=== PATIENT | male | born 1975 | race Caucasian/White ===

== ENCOUNTER 2022-02-27 03:45 | Emergency (ER) | payer OTHER, SELFPAY ==
--- NOTE | 2022-02-27 03:46 | ED.GENADULT ---
HPI - General Adult General Chief complaint: Dizziness Stated complaint: dizziness Time Seen by Provider: 02/27/22 03:46 History of Present Illness HPI narrative: 46-year-old gentleman with history of bipolar disorder, alcohol use disorder in remission for at least the last month and recurrent episodes of tachycardia present an episode of symptomatic tachycardia it. States he has been feeling well, has not had any alcohol for well over a month, had a son and relaxing day did not feel like he was particularly stressed, took his usual amlodipine and 300 mg of quetiapine and laid down to rest and felt his heart pounding. Did not scribed pain, diaphoresis dyspnea. He does note that as soon as his heart seems like it is going a bit fast it makes him more anxious which exacerbates the problem. Has been evaluated previously for episodes of pounding heartbeat but it sounds like it has been limited to EKGs. Does not sound like he has had any type of extended cardiac monitoring, stress testing or echocardiogram. He was recently started on amlodipine to help with both blood pressure and heart rate and notes that it has made a difference. He similarly notes that prior episodes had occasionally been related to binge drinking the night before. He is very clear that he has not had any alcohol for well over a month and was feeling well prior to lying down. He has had no recent viral illnesses complains of no headaches. Related Data Home Medications Medication Instructions Recorded Confirmed amlodipine 10 mg tablet 10 mg DAILY 02/27/22 02/27/22 lamotrigine 25 mg tablet 25 mg BID 02/27/22 02/27/22 quetiapine 300 mg tablet 300 mg DAILY 02/27/22 02/27/22 Previous Rx's Medication Instructions Recorded metoprolol tartrate 25 mg tablet 25 mg PO DAILY #60 tabs 02/27/22 Allergies Allergy/AdvReac Type Severity Reaction Status Date / Time No Known Drug Allergies Allergy Verified 02/27/22 04:00 Review of Systems Review of Systems Narrative: Remainder of complete review of systems is otherwise unremarkable except for that included in the HPI. Patient History Medical History (Updated 02/27/22 @ 04:51 by Kary Rankin MD) Bipolar 1 disorder HTN (hypertension) Tachycardia Exam Initial Vital Signs Initial Vital Signs: General: Healthy appearing, in no acute distress. Able to give a complete and coherent history. Well-nourished well-developed HEENT: Moist mucous membranes, normal sclera with reactive pupils, Neck: No JVD, supple Respiratory: Lungs are clear to auscultation, no wheezing no rales no rhonchi. Full and symmetrical air movement Cardiac: Tachycardic but Regular with no murmurs no bruits Abdomen: Soft, nontender, good bowel tones, no flank pain Skin: Warm and dry, no rashes Neurologic: Grossly neurologically intact with no obvious asymmetries or abnormalities Extremities: No trauma, well perfused Psych: Cooperative, appropriate insight and affect Medical Decision Making MDM Narrative Medical decision making narrative: 46-year-old gentleman who presents with sinus tachycardia. Uncertain etiology. Previously he has had some episodes associated with binge drinking but he has not had any alcohol for at least a month. He has not been particularly stressed today no new medications. He was simply laying down to go to bed when his heart began pounding. In moving about the room his heart rate will vary between 20 and 30 beats per minute all normal sinus rhythm. No evidence of significant anemia or dehydration. Remainder of electrolytes are otherwise unremarkable. No signs of congestive heart failure or suggestion of cardiomyopathy. He has not had any recent viral illnesses. There is no ischemia or acute coronary syndrome appreciated, D-dimer is negative suggesting no DVT to complicate the overall picture. No signs of bacterial or viral infection. TSH is on the high end of normal. In the emergency department he is given a L of fluid and 25 mg of immediate release metoprolol. His heart rate does come down to the mid 90s. He is currently visiting from the [facility]. I am going to give him a prescription for immediate release metoprolol 25 mg b.i.d. and, have him continue with his amlodipine in the evening and suggest that he follow-up with his primary care doctor and possible admissions dean once he returns home. Additional workup for him could well include echocardiogram, Zio patch or Holter monitor testing and possible cardiac stress testing. Despite his continued labile heart rate I believe he is safe for home discharge. Will give him copies of EKGs and blood work to share with his primary care physician in follow-up. Discharge Plan Departure Patient Disposition: Home Clinical Impression: Paroxysmal sinus tachycardia Instructions: DI for Palpitations Activity Restrictions/Additional Instructions: Thank you for coming in this evening. It is frustrated heart is pounding for no apparent reason. Your workup tonight was actually quite reassuring. Your EKG showed no significant abnormalities, there is no evidence of heart attack or heart attack like syndrome, no evidence of congestive heart failure or enlarged heart on chest x-ray lab work or physical exam. You do not have significant anemia, electrolyte abnormalities and your kidney function is appropriate. There is no evidence of pulmonary embolism, abnormal will thyroid function, or infection In the emergency department you were given 1 L of fluid as well as 25 mg of immediate release metoprolol. Metoprolol is both a blood pressure and heart rate medication. At this time, there is no life-threatening explanation for your rapid heart rate. I am going to suggest that you take 25mg of short acting metoprolol in the morning and evening along with the amlodipine in the evening. You do need to buy a home blood pressure monitor and check blood pressures daily. If you note that your blood pressure is under 110/60 OR your heart rate is 60 or lower, do not take the evenign dsoe of metoprolol I do want you to follow-up with your primary care physician. It may be appropriate to also see a admissions dean. Further workup might include an echocardiogram, an ultrasound picture of your heart, cardiac stress testing as well as extended heart rate monitoring with a device such as a Zio patch If you find that you are getting worse or develop any new symptoms, please feel free to return to the emergency department for further evaluation. Prescriptions: New metoprolol tartrate 25 mg tablet 25 mg PO DAILY Qty: 60 1RF No Action quetiapine 300 mg tablet 300 mg DAILY Label Comments: TAKE ONE TABLET BY MOUTH ONE TIME DAILY lamotrigine 25 mg tablet 25 mg BID Label Comments: TAKE ONE TABLET BY MOUTH TWICE DAILY amlodipine 10 mg tablet 10 mg DAILY Label Comments: TAKE ONE TABLET BY MOUTH ONE TIME DAILY
[2022-02-27 03:51] VITALS: BP 134/86; PULSE 113; RESP 16; TEMP 36.8; O2SAT 99; BMI 27.4
[2022-02-27 03:55] VITALS: PULSE 101; RESP 12; O2SAT 98
--- NOTE | 2022-02-27 03:59 | DI.RAD.S_ITS ---
PROCEDURE: XR CHEST 1V INDICATIONS: tachycardia TECHNIQUE: One view of the chest was acquired. COMPARISON: [facility], , CHEST 1 VIEW, 07/20/2014, 15:06. FINDINGS: Surgical changes and devices: None. Lungs and pleura: Lungs are clear. No pleural effusions or pneumothorax. Unchanged calcified granuloma or benign hamartoma, extreme right lung base. Mediastinum: Mediastinal contours appear normal. Heart size is normal. Bones and chest wall: No suspicious bony lesions. Overlying soft tissues appear unremarkable. IMPRESSION: No evidence acute pulmonary process. Comment: Final report is concordant with preliminary interpretation provided by [facility]. Dictated by: Ronak Cesar M.D. on 02/27/2022 at 8:20 Approved by: Ronak Cesar M.D. on 02/27/2022 at 8:22
[2022-02-27 04:00] VITALS: PULSE 106; RESP 13; O2SAT 96
[2022-02-27 04:07] LABS: Add Manual Diff / Slide Review NO; Basophils Absolute Auto 0 /uL (0-100); Basophils Percent Auto 0.5 % (0-2); Eosinophils Absolute Auto 400 /uL (0-450); Eosinophils Percent Auto 6.7 % (2-4); Hematocrit 42.3 % (41-53); Hemoglobin 14.9 g/dL (13.5-17.5); Lymphocytes Absolute Auto 2400 /uL (1100-4500); Lymphocytes Percent Auto 40.3 % (25-40); Mean Corpuscular HGB Conc 35.1 % (30-36); Mean Corpuscular Hemoglobin 28.4 PG (26-34); Mean Corpuscular Volume 80.9 fL (80-100); Monocytes Absolute Auto 400 /uL (0-900); Monocytes Percent Auto 7.2 % (3-14); Neutrophils Absolute Auto 2700 /uL (1500-7000); Neutrophils Percent Auto 45.3 % (50-75); Platelet Count 255 X10^3/uL (150-400); Red Blood Cell Count 5.23 X10^6/uL (4.5-5.9); Red Cell Distribution Width 12.8 % (11.6-14.8)
[2022-02-27] MEDS: SODIUM CHLORIDE 0.9% 1,000 ML 1000 ML IV (04:09)
[2022-02-27 04:12] LABS: Magnesium 2.1 mg/dL (1.6-2.3)
[2022-02-27 04:13] LABS: Alanine Aminotransferase 29 IU/L (<50); Albumin 4.5 g/dL (3.5-5.0); Albumin Globulin Ratio 1.4 (1.0-2.8); Alkaline Phosphatase 69 U/L (38-126); Aspartate Aminotransferase 25 IU/L (17-59); Bilirubin Total 0.5 mg/dL (0.2-1.3); Blood Urea Nitrogen 16 mg/dL (9-20); Calcium 8.8 mg/dL (8.4-10.2); Carbon Dioxide 25 mmol/L (22-32); Chloride 104 mmol/L (98-107); Estimated Glomerular Filt Rate > 60 mL/min (>60); Globulin 3.3 g/dL (1.7-4.1); Glucose 181 mg/dL (70-100); HEMOLYSIS 24 (0-50); Potassium 3.6 mmol/L (3.4-5.1); Sodium 139 mmol/L (137-145); Total Protein 7.8 g/dL (6.3-8.2)
[2022-02-27 04:22] LABS: NT-proBNP (BNP-Adult 18+) 17 pg/mL (<125)
[2022-02-27 04:23] LABS: D Dimer < 500 ng/ml (<500)
[2022-02-27 04:25] LABS: Troponin I < 0.012 ng/mL (0.01-0.034)
[2022-02-27 04:30] VITALS: PULSE 104; RESP 16; O2SAT 95
[2022-02-27 04:30] LABS: COVID19 -Nasal RAPID Negative (Negative)
[2022-02-27 04:48] LABS: Thyroid Stimulating Hormone 4.47 uIU/mL (0.47-4.68)
[2022-02-27] MEDS: METOPROLOL IR 25 MG TABLET PO (04:48)
[2022-02-27 05:00] VITALS: PULSE 97; RESP 15; O2SAT 95
[2022-02-27 05:30] VITALS: BP 134/86; PULSE 85; RESP 16
--- NOTE | 2022-02-27 20:16 | PC.NURSE ---
Per primary nurse: fluids infused @ 0500.
== END 2022-02-27 05:30 | disposition home or self-care (01) ==
PROVIDERS: Emergency Provider Emergency Medicine
DX: I47.1 Supraventricular tachycardia (principal); Z20.822 Contact with and (suspected) exposure to COVID-19
CPT/HCPCS: 36415; 71045; 80053; 81003; 83735; 83880; 84443; 84484; 85025; 85379; 87635; 93005; 93010; 96360; 99284; C9803

== ENCOUNTER 2023-03-16 22:42 | Emergency (ER) | payer OTHER, SELFPAY ==
[2023-03-16 22:57] VITALS: BP 143/98; RESP 18; TEMP 37.2; O2SAT 98; BMI 27.6
--- NOTE | 2023-03-16 23:26 | ED_ITS ---
HPI - Skin/Abscess/Foreign Bdy General Chief complaint: Eye Problems Stated complaint: facial swelling, diagnosed cellulitis Time Seen by Provider: 03/16/23 23:21 Source: patient Mode of arrival: Ambulatory Limitations: no limitations History of Present Illness HPI narrative: Patient 47-year-old male presents today with 3-4 days of facial swelling redness body aches. Sports that he thought he had COVID a few days ago he is had negative COVID tests out then started noticing rash around face in his eye. Started getting more swollen today. Went to his PCP to day who started him on what sounds like cephalexin. He denies any eye pain blurry vision double vision but does have significant swelling periorbitally around the left. He does report some pruritus. He is afebrile here has been taking ibuprofen every 4 hours. He has no actual eye pain he complains of scalp itching he is pretty confident that he had a fever the 1st couple of days. No other symptoms. Denies rash or hives anywhere else. Related Data Home Medications Medication Instructions Recorded Confirmed amlodipine 10 mg tablet 10 mg DAILY 02/27/22 02/27/22 lamotrigine 25 mg tablet 25 mg BID 02/27/22 02/27/22 quetiapine 300 mg tablet 300 mg DAILY 02/27/22 02/27/22 Previous Rx's Medication Instructions Recorded metoprolol tartrate 25 mg tablet 25 mg PO DAILY #60 tabs 02/27/22 Allergies Allergy/AdvReac Type Severity Reaction Status Date / Time No Known Drug Allergies Allergy Verified 02/27/22 04:00 Review of Systems Review of Systems ROS Unobtainable: All systems reviewed & are unremarkable except as noted in HPI and below Patient History Medical History Bipolar 1 disorder HTN (hypertension) Tachycardia Social History Smoking Status: Current every day smoker Smoking Status: Current every day smoker tobacco type: vaping Substance Use Type: does not use Exam Initial Vital Signs Initial Vital Signs: Vital Signs Temperature 99 F 03/16/23 22:57 Respiratory Rate 18 03/16/23 22:57 Blood Pressure 143/98 H 03/16/23 22:57 Pulse Oximetry 98 03/16/23 22:57 Oxygen Delivery Method Room Air 03/16/23 22:57 GENERAL: Alert 47-year-old male appears uncomfortable with obvious rashes swelling HEENT: Head atraumatic,EOMI, pupils reactive, right-sided periorbital swelling with erythema face symmetric, no proptosis conjunctivae are white non erythematous moist mucous membranes CARDIOVASCULAR: Regular rate and rhythm without murmurs, rubs or gallops. RESPIRATORY: Breath sounds equal bilaterally, no wheezes rales or rhonchi. ABDOMEN: Soft, nontender. Normoactive bowel sounds all 4 quadrants. No guarding or rebound. EXTREMITIES: Normal range of motion, no clubbing or edema. Neurovascularly intact NEUROLOGICAL: Alert and oriented x4. SKIN: Right Orbital swelling erythema there is some splotchy erythematous areas on forehead and face. No vesicles bilateral face worse on right than left Course Orders Ordered: ED Orders 03/16/23 23:38 CBC Auto Diff [Complete Blood Count AUTO DIFF] Stat CMP [Comprehensive Metabolic Panel] Stat Lactate (Lactic Acid) Stat Procalcitonin Stat Discontinued Medications Dexamethasone (Dexamethasone 10 Mg/Ml Vial) 10 mg IV NOW ONE Stop: 03/16/23 23:28 Last Admin: 03/16/23 23:47 Dose: 10 mg Documented By: ILYA Ampicillin Sodium/Sulbactam (Sodium 3 gm/ Sodium Chloride) 100 mls @ 200 mls/hr IV NOW ONE Stop: 03/16/23 23:27 Last Infusion: 03/17/23 00:26 Dose: 0 mls/hr Documented By: Admin: 03/16/23 23:49 Dose: 200 mls/hr Documented By: ILYA Vital Signs Vital signs: Vital Signs - 8 hr 03/16/23 22:57 03/17/23 00:16 03/17/23 00:16 Temperature 99 F Pulse Rate 78 83 Respiratory Rate 18 16 Blood Pressure 143/98 H 127/88 Pulse Oximetry 98 99 Oxygen Delivery Method Room Air 03/17/23 00:30 03/17/23 00:30 03/17/23 01:00 Temperature Pulse Rate 82 Respiratory Rate Blood Pressure 120/82 120/84 Pulse Oximetry 97 Oxygen Delivery Method 03/17/23 01:00 03/17/23 01:30 03/17/23 01:31 Temperature Pulse Rate 79 80 Respiratory Rate Blood Pressure 136/87 Pulse Oximetry 95 97 Oxygen Delivery Method 03/17/23 01:31 Temperature Pulse Rate 79 Respiratory Rate 16 Blood Pressure Pulse Oximetry 97 Oxygen Delivery Method MDM - Skin/Abscess/Foreign Bdy Lab Data 03/16/23 23:38 03/16/23 23:38 Labs: Lab Results 03/16/23 03/16/23 03/16/23 Range/Units 23:38 23:38 23:38 WBC 5.8 (4.5-11.0) X10^3/uL RBC 4.54 (4.5-5.9) X10^6/uL Hgb 13.3 L (13.5-17.5) g/dL Hct 37.4 L (41-53) % MCV 82.3 (80-100) fL MCH 29.2 (26-34) PG MCHC 35.5 (30-36) % RDW 12.9 (11.6-14.8) % Plt Count 200 (150-400) X10^3/uL Neut % (Auto) 77.4 H (50-75) % Lymph % (Auto) 9.7 L (25-40) % [place] % (Auto) 10.4 (3-14) % Eos % (Auto) 1.4 L (2-4) % Baso % (Auto) 1.1 (0-2) % Neut # (Auto) 4500 (6013-2488) /uL Lymph # (Auto) 600 L (5358-7945) /uL [place] # (Auto) 600 (0-900) /uL Eos # (Auto) 100 (0-450) /uL Baso # (Auto) 100 (0-100) /uL Sodium 139 (137-145) mmol/L Potassium 3.9 (3.4-5.1) mmol/L Chloride 103 (98-107) mmol/L Carbon Dioxide 25 (22-32) mmol/L BUN 6 L (9-20) mg/dL Creatinine 0.87 (0.66-1.25) mg/dL Estimated GFR > 60 (>60) mL/min BUN/Creatinine Ratio 6.9 (6-22) Glucose 99 (70-100) mg/dL Lactate 0.8 (0.7-2.1) mmol/L Calcium 8.7 (8.4-10.2) mg/dL Total Bilirubin 1.3 (0.2-1.3) mg/dL AST 132 H (17-59) IU/L ALT 146 H (<50) IU/L Alkaline Phosphatase 141 H (38-126) U/L Total Protein 7.8 (6.3-8.2) g/dL Albumin 4.1 (3.5-5.0) g/dL Globulin 3.7 (1.7-4.1) g/dL Albumin/Globulin Ratio 1.1 (1.0-2.8) Procalcitonin (<0.5) ng/mL 03/16/23 Range/Units 23:38 WBC (4.5-11.0) X10^3/uL RBC (4.5-5.9) X10^6/uL Hgb (13.5-17.5) g/dL Hct (41-53) % MCV (80-100) fL MCH (26-34) PG MCHC (30-36) % RDW (11.6-14.8) % Plt Count (150-400) X10^3/uL Neut % (Auto) (50-75) % Lymph % (Auto) (25-40) % [place] % (Auto) (3-14) % Eos % (Auto) (2-4) % Baso % (Auto) (0-2) % Neut # (Auto) (1087-9189) /uL Lymph # (Auto) (7960-2472) /uL [place] # (Auto) (0-900) /uL Eos # (Auto) (0-450) /uL Baso # (Auto) (0-100) /uL Sodium (137-145) mmol/L Potassium (3.4-5.1) mmol/L Chloride (98-107) mmol/L Carbon Dioxide (22-32) mmol/L BUN (9-20) mg/dL Creatinine (0.66-1.25) mg/dL Estimated GFR (>60) mL/min BUN/Creatinine Ratio (6-22) Glucose (70-100) mg/dL Lactate (0.7-2.1) mmol/L Calcium (8.4-10.2) mg/dL Total Bilirubin (0.2-1.3) mg/dL AST (17-59) IU/L ALT (<50) IU/L Alkaline Phosphatase (38-126) U/L Total Protein (6.3-8.2) g/dL Albumin (3.5-5.0) g/dL Globulin (1.7-4.1) g/dL Albumin/Globulin Ratio (1.0-2.8) Procalcitonin 0.13 (<0.5) ng/mL MDM Narrative Medical decision making narrative: Patient 47-year-old male who presents today with significant erythema facial swelling more over right eye than left. Eye itself appears well he has no pain or concerning signs for orbital cellulitis. He does have possible periorbital cellulitis due to the amount of erythema and swelling. However it does extend into his forehead and onto the left side as well. He is afebrile here blood work is overall reassuring without leukocytosis elevated lactate and procalcitonin. Blood cultures are pending. He was given cephalexin by PCP he is given a dose of Unasyn here in the ED. erythema and swelling actually do seem to improve slightly. He is able to open his eye completely now. He is not been on cephalexin very long. Recommend continuing the cephalexin as prescribed and return if swelling redness get worse. This does seem to be more of a cellulitis rather an allergic reaction there are no other hives but he is complaining of some pruritus. He is given a dose of dexamethasone with seem to help some swelling. Liver enzymes are elevated prior history of alcohol abuse no elevated bilirubin and he has no abdominal pain. Discharge Plan Departure Patient Disposition: Home Clinical Impression: Cellulitis, face Instructions: DI for Cellulitis -- Adult Activity Restrictions/Additional Instructions: *You have been diagnosed with facial cellulitis *What to do: At this time I think give the antibiotics a chance to work, expect to have swelling worse in the morning. Ice 20-30 minutes at times upright. *Continue to take medications as directed Continue taking antibiotics as prescribed *Follow up with your primary care provider in 2-3 days or call [phone] *Return to ER if you should have increasing redness pain fever inability to open eye painful eye movements or any new, worsening or concerning symptoms Prescriptions: No Action quetiapine 300 mg tablet 300 mg DAILY Patient Comments: TAKE ONE TABLET BY MOUTH ONE TIME DAILY lamotrigine 25 mg tablet 25 mg BID Patient Comments: TAKE ONE TABLET BY MOUTH TWICE DAILY amlodipine 10 mg tablet 10 mg DAILY Patient Comments: TAKE ONE TABLET BY MOUTH ONE TIME DAILY metoprolol tartrate 25 mg tablet 25 mg PO DAILY Qty: 60 1RF Referrals: Adore Bazan MD [Primary Care Provider] - Stand Alone Forms: Patient Portal/API
[2023-03-16] MEDS: DEXAMETHASONE 10 MG/ML VIAL IV (23:47)
[2023-03-16] MEDS: AMPICILLIN/SULBACTAM 3 GM 3 GM in SODIUM CHLORIDE 0.9% 100 ML IV (23:49)
[2023-03-16 23:52] LABS: Add Manual Diff / Slide Review NO; Basophils Absolute Auto 100 /uL (0-100); Basophils Percent Auto 1.1 % (0-2); Eosinophils Absolute Auto 100 /uL (0-450); Eosinophils Percent Auto 1.4 % (2-4); Hematocrit 37.4 % (41-53); Hemoglobin 13.3 g/dL (13.5-17.5); Lymphocytes Absolute Auto 600 /uL (1100-4500); Lymphocytes Percent Auto 9.7 % (25-40); Mean Corpuscular HGB Conc 35.5 % (30-36); Mean Corpuscular Hemoglobin 29.2 PG (26-34); Mean Corpuscular Volume 82.3 fL (80-100); Monocytes Absolute Auto 600 /uL (0-900); Monocytes Percent Auto 10.4 % (3-14); Neutrophils Absolute Auto 4500 /uL (1500-7000); Neutrophils Percent Auto 77.4 % (50-75); Platelet Count 200 X10^3/uL (150-400); Red Blood Cell Count 4.54 X10^6/uL (4.5-5.9); Red Cell Distribution Width 12.9 % (11.6-14.8); White Blood Cell Count 5.8 X10^3/uL (4.5-11.0)
[2023-03-16 23:56] LABS: Lactate (Lactic Acid) 0.8 mmol/L (0.7-2.1)
[2023-03-16 23:58] LABS: Alanine Aminotransferase 146 IU/L (<50); Albumin 4.1 g/dL (3.5-5.0); Albumin Globulin Ratio 1.1 (1.0-2.8); Alkaline Phosphatase 141 U/L (38-126); Aspartate Aminotransferase 132 IU/L (17-59); BUN Creatinine Ratio 6.9 (6-22); Bilirubin Total 1.3 mg/dL (0.2-1.3); Blood Urea Nitrogen 6 mg/dL (9-20); Calcium 8.7 mg/dL (8.4-10.2); Carbon Dioxide 25 mmol/L (22-32); Chloride 103 mmol/L (98-107); Estimated Glomerular Filt Rate > 60 mL/min (>60); Globulin 3.7 g/dL (1.7-4.1); Glucose 99 mg/dL (70-100); HEMOLYSIS < 15 (0-50); Potassium 3.9 mmol/L (3.4-5.1); Sodium 139 mmol/L (137-145); Total Protein 7.8 g/dL (6.3-8.2)
[2023-03-17 00:14] LABS: Procalcitonin 0.13 ng/mL (<0.5)
[2023-03-17 00:16] VITALS: BP 127/88; PULSE 78; PULSE 83; RESP 16; O2SAT 99
[2023-03-17 00:30] VITALS: BP 120/82; PULSE 82; O2SAT 97
[2023-03-17 01:00] VITALS: BP 120/84; PULSE 79; O2SAT 95
[2023-03-17 01:30] VITALS: PULSE 80; O2SAT 97
[2023-03-17 01:31] VITALS: BP 136/87; PULSE 79; RESP 16; O2SAT 97
== END 2023-03-17 01:43 | disposition home or self-care (01) ==
PROVIDERS: Emergency Provider Emergency Medicine; PCP Internal Medicine
DX: L03.211 Cellulitis of face (principal)
CPT/HCPCS: 36415; 80053; 83605; 84145; 85025; 87040; 96365; 96375; 99284; J0295; J1100

== ENCOUNTER 2024-04-23 18:30 | Emergency (ER) | payer OTHER, MEDICAID, SELFPAY ==
[2024-04-23] VITALS (12 sets, daily range): BP systolic 110–151; BP diastolic 57–96; PULSE 85–129; RESP 10–19; TEMP 36.6; O2SAT 93–99; BMI 30.2
--- NOTE | 2024-04-23 18:52 | EKG_ITS ---
[facility] [address] [address] Test Date: 2024-04-23 Pat Name: Ryan Kim Department: [facility] Room: Gender: Male Parking Enforcement Officer: ABIOLA : 1975 Requested By: Order Number: [id number] Reading MD: Nathaniel Crowley MD Measurements Intervals Kinsey Rate: 117 P: 60 NM: 168 QRS: 35 QRSD: 80 T: 58 QT: 308 QTc: 429 Interpretive Statements Sinus tachycardia Electronically Signed On 04-24-2024 7:59:25 PDT by Nathaniel Crowley MD
[2024-04-23 19:07] LABS: Add Manual Diff / Slide Review NO; Basophils Absolute Auto 0 /uL (0-100); Basophils Percent Auto 0.4 % (0-2); Eosinophils Absolute Auto 200 /uL (0-450); Eosinophils Percent Auto 3.1 % (2-4); Hematocrit 48.1 % (41-53); Hemoglobin 16.5 g/dL (13.5-17.5); Lymphocytes Absolute Auto 2100 /uL (1100-4500); Lymphocytes Percent Auto 28.6 % (25-40); Mean Corpuscular HGB Conc 34.4 % (30-36); Mean Corpuscular Volume 84.3 fL (80-100); Monocytes Absolute Auto 500 /uL (0-900); Monocytes Percent Auto 6.8 % (3-14); Neutrophils Absolute Auto 4400 /uL (1500-7000); Neutrophils Percent Auto 61.1 % (50-75); Platelet Count 263 X10^3/uL (150-400); Red Cell Distribution Width 13.5 % (11.6-14.8); White Blood Cell Count 7.2 X10^3/uL (4.5-11.0)
[2024-04-23 19:13] LABS: Alanine Aminotransferase 49 IU/L (<50); Albumin Globulin Ratio 1.4 (1.0-2.8); Alkaline Phosphatase 74 U/L (38-126); Aspartate Aminotransferase 32 IU/L (17-59); BUN Creatinine Ratio 10.9 (6-22); Bilirubin Total 0.8 mg/dL (0.2-1.3); Blood Urea Nitrogen 12 mg/dL (9-20); Calcium 9.8 mg/dL (8.4-10.2); Carbon Dioxide 28 mmol/L (22-32); Chloride 101 mmol/L (98-107); Estimated Glomerular Filt Rate > 60 mL/min (>60); Globulin 3.5 g/dL (1.7-4.1); Glucose 128 mg/dL (70-100); HEMOLYSIS < 15 (0-50); Lipase 169 U/L (23-300); Magnesium 2.2 mg/dL (1.6-2.3); Potassium 3.6 mmol/L (3.4-5.1); Sodium 140 mmol/L (137-145); Total Protein 8.5 g/dL (6.3-8.2)
[2024-04-23] MEDS: PROPRANOLOL 10 MG TABLET PO (19:35)
[2024-04-23] MEDS: ONDANSETRON 4 MG/2 ML INJ IV (19:46)
--- NOTE | 2024-04-23 20:18 | ED_ITS ---
HPI - Arrhythmia/Palpitations General Chief Complaint: Arrhythmia/Palpitations Stated Complaint: Rapid Heart Rate Time Seen by Provider: 04/23/24 18:52 Source: patient and EMS Mode of arrival: EMS History of Present Illness HPI narrative: Patient is a 48-year-old male. Has had episodes of tachycardia in the past. No specific diagnosis as to the etiology of these episodes of tachycardia. He has been prescribed metoprolol to take in the past but was told to only do it on occasional basis. He was had 3 particular episodes in the past several years. Patient also is on Seroquel. He has been trying to decrease the amount of Seroquel that he is on. He presents to the emergency department today for generally not feeling very well. Heart beating fast. Also having nausea. This was sudden onset tonight while he was watching football. He was establishing with a primary doctor at the end of this week. Related Data Home Medications Medication Instructions Recorded Confirmed amlodipine 10 mg tablet 10 mg DAILY 02/27/22 02/27/22 lamotrigine 25 mg tablet 25 mg BID 02/27/22 02/27/22 quetiapine 300 mg tablet 300 mg DAILY 02/27/22 02/27/22 Previous Rx's Medication Instructions Recorded metoprolol tartrate 25 mg tablet 25 mg PO DAILY #60 tabs 02/27/22 metoprolol succinate 25 mg 25 mg PO DAILY #30 tabs 04/23/24 tablet,extended release 24 hr Allergies Allergy/AdvReac Type Severity Reaction Status Date / Time No Known Drug Allergies Allergy Verified 04/23/24 18:42 Review of Systems Review of Systems ROS Unobtainable: All systems reviewed & are unremarkable except as noted in HPI and below Patient History Medical History Tachycardia HTN (hypertension) Bipolar 1 disorder Social History Smoking Status: Current every day smoker Smoking Status: Current every day smoker tobacco type: vaping Substance Use Type: does not use Exam Initial Vital Signs Initial Vital Signs: Vital Signs Pulse Rate 106 H 04/23/24 18:41 Respiratory Rate 11 L 04/23/24 18:41 Pulse Oximetry 99 04/23/24 18:41 Const General: cooperative and No ill appearing HENMT Head: normal to inspection and normocephalic Resp Effort & Inspection: normal respiratory effort Auscultation: clear to auscultation bilaterally Cardio Rate: tachycardic Rhythm: regular rhythm GI Inspection: normal to inspection Skin General: no rashes or lesions noted Neuro General: patient alert, patient awake, patient oriented x3 and moves all extremities Extrem General: normal to inspection and capillary refill normal Course Orders Ordered: ED Orders 04/23/24 18:35 Complete Blood Count AUTO DIFF Stat Comprehensive Metabolic Panel Stat Lipase Stat Magnesium Stat TSH [Thyroid Stimulating Hormone] Stat Troponin & CK Cardiac Panel Stat 04/23/24 18:52 EKG-12 Lead Stat 04/23/24 21:00 Covid-19 + FLU A/B + RSV - PCR Stat Discontinued Medications Lorazepam (Lorazepam 2 Mg/Ml Inj) 1 mg IV NOW ONE Stop: 04/23/24 20:43 Last Admin: 04/23/24 20:52 Dose: 1 mg Documented By: MINO Metoprolol Succinate (Metoprolol Er 25 Mg Tablet) 25 mg PO NOW ONE Stop: 04/23/24 20:21 Last Admin: 04/23/24 20:25 Dose: 25 mg Documented By: MINO Ondansetron HCl (Ondansetron 4 Mg/2 Ml Inj) 4 mg IV NOW ONE Stop: 04/23/24 19:42 Last Admin: 04/23/24 19:46 Dose: 4 mg Documented By: ANIKA Propranolol HCl (Propranolol 10 Mg Tablet) 10 mg PO NOW ONE Stop: 04/23/24 19:22 Last Admin: 04/23/24 19:35 Dose: 10 mg Documented By: ANIKA Quetiapine Fumarate (Quetiapine 100 Mg Tablet) 100 mg PO BEDTIME LUIS Last Admin: 04/23/24 23:07 Dose: 100 mg Documented By: Vital Signs Vital signs: Vital Signs - 8 hr 04/23/24 19:30 04/23/24 19:30 04/23/24 20:00 Pulse Rate 125 H Respiratory Rate 16 Blood Pressure 147/84 H 149/88 H Pulse Oximetry 98 Oxygen Delivery Method 04/23/24 20:00 04/23/24 20:25 04/23/24 20:30 Pulse Rate 115 H 118 H Respiratory Rate 18 Blood Pressure 147/96 H Pulse Oximetry 99 Oxygen Delivery Method 04/23/24 20:30 04/23/24 21:00 04/23/24 21:00 Pulse Rate 126 H 116 H Respiratory Rate 10 L 13 Blood Pressure 151/95 H Pulse Oximetry 98 97 Oxygen Delivery Method 04/23/24 22:00 04/23/24 22:00 04/23/24 22:30 Pulse Rate 88 Respiratory Rate 18 Blood Pressure 112/78 110/57 L Pulse Oximetry 95 Oxygen Delivery Method 04/23/24 22:30 04/23/24 23:00 04/23/24 23:00 Pulse Rate 86 85 Respiratory Rate 17 18 Blood Pressure 114/77 Pulse Oximetry 96 96 Oxygen Delivery Method Room Air MDM - Arrhythmia/Palpitations Lab Data Attestation: I reviewed the patient's lab results. 04/23/24 18:35 04/23/24 18:35 Labs: Lab Results 04/23/24 04/23/24 Range/Units 18:35 21:00 WBC 7.2 (4.5-11.0) X10^3/uL RBC 5.70 (4.5-5.9) X10^6/uL Hgb 16.5 (13.5-17.5) g/dL Hct 48.1 (41-53) % MCV 84.3 (80-100) fL MCH 29.0 (26-34) PG MCHC 34.4 (30-36) % RDW 13.5 (11.6-14.8) % Plt Count 263 (150-400) X10^3/uL Neut % (Auto) 61.1 (50-75) % Lymph % (Auto) 28.6 (25-40) % [place] % (Auto) 6.8 (3-14) % Eos % (Auto) 3.1 (2-4) % Baso % (Auto) 0.4 (0-2) % Neut # (Auto) 4400 (9977-9135) /uL Lymph # (Auto) 2100 (3955-2344) /uL [place] # (Auto) 500 (0-900) /uL Eos # (Auto) 200 (0-450) /uL Baso # (Auto) 0 (0-100) /uL Sodium 140 (137-145) mmol/L Potassium 3.6 (3.4-5.1) mmol/L Chloride 101 (98-107) mmol/L Carbon Dioxide 28 (22-32) mmol/L BUN 12 (9-20) mg/dL Creatinine 1.10 (0.66-1.25) mg/dL Estimated GFR > 60 (>60) mL/min BUN/Creatinine Ratio 10.9 (6-22) Glucose 128 H (70-100) mg/dL Calcium 9.8 (8.4-10.2) mg/dL Magnesium 2.2 (1.6-2.3) mg/dL Total Bilirubin 0.8 (0.2-1.3) mg/dL AST 32 (17-59) IU/L ALT 49 (<50) IU/L Alkaline Phosphatase 74 (38-126) U/L Total Creatine Kinase 103 (55-170) U/L Troponin I < 0.012 (0.01-0.034) ng/mL Total Protein 8.5 H (6.3-8.2) g/dL Albumin 5.0 (3.5-5.0) g/dL Globulin 3.5 (1.7-4.1) g/dL Albumin/Globulin Ratio 1.4 (1.0-2.8) Lipase 169 (23-300) U/L TSH 2.41 (0.47-4.68) uIU/mL SARS-CoV-2 (PCR) Negative (Negative) Influenza A (RT-PCR) Flu a negative (NEGATIVE) Influenza B (RT-PCR) Flu b negative (NEGATIVE) RSV (PCR) Negative (Negative) ECG Data Attestation: I personally reviewed and interpreted this ECG as follows: Interpretation: Sinus tachycardia Ventricular rate [address] T wave changes MDM Narrative Medical decision making narrative: Patient received a dose of propranolol which did not help his symptoms tremendously. He was then given a dose of metoprolol which potentially help his symptoms somewhat but it was after Ativan when his symptoms almost completely resolved. His labs are unremarkable. TSH is unremarkable. I have low suspicion that this is extrapyramidal symptoms for his Seroquel. He was actually been decreasing the dose of Seroquel not increasing it. We discussed the lack of a definitive diagnosis today but I do have a suspicion that this maybe psychologic in origin however a referral to see cardiology and have a Holter monitor is not unreasonable. Will discharge patient with instructions to keep his appointment with his primary doctor at the end of this week. Expressed understanding and agreement. Discharge Plan Departure Patient Disposition: Home Clinical Impression: Sinus tachycardia Instructions: Arrhythmias Activity Restrictions/Additional Instructions: I do recommend that you continue to take all of your medications as directed. Keep your scheduled follow-up appointment with your primary doctor on Wednesday. You do need to discuss the indications for referral to see Cardiology in the indications for a Holter monitor. Return to the emergency department for new symptoms. Prescriptions: New metoprolol succinate 25 mg tablet extended release 24 hr 25 mg PO DAILY Qty: 30 0RF No Action quetiapine 300 mg tablet 300 mg DAILY Patient Comments: TAKE ONE TABLET BY MOUTH ONE TIME DAILY lamotrigine 25 mg tablet 25 mg BID Patient Comments: TAKE ONE TABLET BY MOUTH TWICE DAILY amlodipine 10 mg tablet 10 mg DAILY Patient Comments: TAKE ONE TABLET BY MOUTH ONE TIME DAILY metoprolol tartrate 25 mg tablet 25 mg PO DAILY Qty: 60 1RF Referrals: Adore Bazan MD [Primary Care Provider] - Stand Alone Forms: Patient Portal/API, Work Release Note
[2024-04-23] MEDS: METOPROLOL ER 25 MG TABLET PO (20:25)
[2024-04-23] MEDS: LORazepam 2 MG/ML INJ 1 MG IV (20:52)
[2024-04-23 21:05] LABS: Creatine Kinase 103 U/L (55-170)
[2024-04-23 21:18] LABS: Troponin I < 0.012 ng/mL (0.01-0.034)
[2024-04-23 21:37] LABS: Thyroid Stimulating Hormone 2.41 uIU/mL (0.47-4.68)
[2024-04-23 21:45] LABS: Influenza A - CEPHEID Flu A NEGATIVE (NEGATIVE); Influenza B - CEPHEID Flu B NEGATIVE (NEGATIVE); Respiratory Syncytial Virus Negative (Negative)
[2024-04-23 21:57] LABS: COVID-19 CEPHEID 4-PLEX PCR Negative (Negative)
[2024-04-23] MEDS: QUETIAPINE 100 MG TABLET PO (23:07)
== END 2024-04-23 23:11 | disposition home or self-care (01) ==
PROVIDERS: Emergency Provider Emergency Medicine; PCP Internal Medicine
DX: R00.0 Tachycardia, unspecified (principal); Z11.52 Encounter for screening for COVID-19
CPT/HCPCS: 0241U; 36415; 80053; 82550; 83690; 83735; 84443; 84484; 85025; 93005; 93010; 96374; 96375; 99284; J2060; J2405

== ENCOUNTER 2024-12-10 22:28 | Emergency (ER) | payer OTHER, MEDICAID, SELFPAY ==
[2024-12-10 22:35] VITALS: BP 108/77; PULSE 83; RESP 14; TEMP 36.6; O2SAT 95; BMI 27.8
--- NOTE | 2024-12-10 22:37 | EKG_ITS ---
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
--- NOTE | 2024-12-11 01:48 | ED.PSYCH ---
HPI - Psych General Chief Complaint: Psychiatric Symptoms Stated Complaint: insomnia pain in chest Time Seen by Provider: 12/10/24 23:47 Source: patient Mode of arrival: Ambulatory History of Present Illness HPI Narrative: 49-year-old gentleman history of bipolar sleep apnea and insomnia previously on Seroquel stopped it a few months ago because it was causing him to have heart palpitations presents with difficulty sleeping for the last 4 or 5 nights. He was previously on Ambien but he started to sleep walk and did not like the way it made him feel and trazodone did not work. He was prescribed Ativan for sleep which helped him some also but he ran out. He is here requesting medicine for sleep until he can follow up with his primary care doctor appointment. Other than what is stated 14 point review of system is negative. Related Data Home Medications Medication Instructions Recorded Confirmed amlodipine 10 mg tablet 10 mg DAILY 02/27/22 02/27/22 lamotrigine 25 mg tablet 25 mg BID 02/27/22 02/27/22 quetiapine 300 mg tablet 300 mg DAILY 02/27/22 02/27/22 Previous Rx's Medication Instructions Recorded metoprolol tartrate 25 mg tablet 25 mg PO DAILY #60 tabs 02/27/22 metoprolol succinate 25 mg 25 mg PO DAILY #30 tabs 04/23/24 tablet,extended release 24 hr eszopiclone 1 mg tablet (Lunesta) 1 mg PO BEDTIME #20 tabs 12/11/24 Allergies Allergy/AdvReac Type Severity Reaction Status Date / Time No Known Drug Allergies Allergy Verified 04/23/24 18:42 Review of Systems Review of Systems ROS Unobtainable: All systems reviewed & are unremarkable except as noted in HPI and below Patient History Medical History Tachycardia HTN (hypertension) Bipolar 1 disorder Smoking Status: Former smoker tobacco type: smokeless tobacco Exam Narrative Exam Narrative: GENERAL: [49] year old patient appears stated age. Well-developed patient, in mild distress. HEAD: Atraumatic. Normocephalic. EYES: Pupils equal round and reactive. Extraocular motions intact. No scleral icterus. No injection or drainage. NECK: Trachea midline. Non tender CARDIOVASCULAR: Regular rate and rhythm without murmurs, gallops, or rubs. RESPIRATORY: Clear to auscultation. Breath sounds equal bilaterally. No wheezes, rales, or rhonchi. EXTREMITIES: No edema or joint tenderness. BACK: Nontender without deformity or crepitance. No flank tenderness. NEURO: AOx3. GCS 15 nonfocal neuro exam SKIN: No rash or erythema of visible areas Initial Vital Signs Initial Vital Signs: Vital Signs Temperature 97.9 F 12/10/24 22:35 Pulse Rate 83 12/10/24 22:35 Respiratory Rate 14 12/10/24 22:35 Blood Pressure 108/77 12/10/24 22:35 Pulse Oximetry 95 12/10/24 22:35 Oxygen Delivery Method Room Air 12/10/24 22:35 Course Orders Ordered: ED Orders 12/10/24 22:34 EKG-12 Lead Stat Vital Signs Vital signs: Vital Signs - 8 hr 12/10/24 22:35 Temperature 97.9 F Pulse Rate 83 Respiratory Rate 14 Blood Pressure 108/77 Pulse Oximetry 95 Oxygen Delivery Method Room Air MDM - Psych MDM Narrative Medical decision making narrative: Vital signs, nurse triage note, medication list, previous ER visits, and all imaging studies reviewed. Patient given Ativan 2 mg here will be discharged on Lunesta as prescription and to follow up with PCP. Differential diagnosis include untreated obstructive sleep apnea, poor sleep hygiene, insomnia. Return with new or worsening symptoms and to follow up with sleep study in [place] and and PCP appointment. Discharge Plan Departure Patient Disposition: Home Clinical Impression: Acute insomnia Instructions: DI for Insomnia Activity Restrictions/Additional Instructions: Return with new or worsening symptoms. Take your medicines as directed. Follow up with sleep study in [place]. Follow up with PCP at next scheduled appointment. Prescriptions: New eszopiclone [Lunesta] 1 mg tablet 1 mg PO BEDTIME Qty: 20 0RF No Action quetiapine 300 mg tablet 300 mg DAILY Patient Comments: TAKE ONE TABLET BY MOUTH ONE TIME DAILY lamotrigine 25 mg tablet 25 mg BID Patient Comments: TAKE ONE TABLET BY MOUTH TWICE DAILY amlodipine 10 mg tablet 10 mg DAILY Patient Comments: TAKE ONE TABLET BY MOUTH ONE TIME DAILY metoprolol tartrate 25 mg tablet 25 mg PO DAILY Qty: 60 1RF metoprolol succinate 25 mg tablet extended release 24 hr 25 mg PO DAILY Qty: 30 0RF Referrals: Adore Bazan MD [Primary Care Provider] - Stand Alone Forms: Patient Portal/API/Survey
[2024-12-11] MEDS: LORazepam 0.5 MG TABLET 2 MG PO (02:20)
[2024-12-11 02:26] VITALS: BP 113/84; PULSE 79; RESP 18; O2SAT 97
== END 2024-12-11 02:26 | disposition home or self-care (01) ==
PROVIDERS: Emergency Provider Family Medicine; PCP Internal Medicine
DX: G47.00 Insomnia, unspecified (principal); R00.2 Palpitations
CPT/HCPCS: 93005; 99283